=== PATIENT | female | born 1945 | race Caucasian/White ===

== ENCOUNTER 2016-06-03 16:14 | Emergency (ER) | payer OTHER ==
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
[~2016-06-03 16:14] MED LIST: ASPIRIN81 M2 PO; ASPIRINEC PO; CALCIUM 500 + D1 TAB PO; CALCIUM 500 +1 EAC2 PO; HCTZ PO; KEFLEX500 M1 PO; LISINOPRIL; LISINOPRIL PO; MULTI-VITAMIN1 EAC1 PO; OSTEO BI-FLEX1 EACH PO; PEPTO-BISMOL PO; PERCOCET PO; PHENERGAN PO; SYNTHROID PO
== END 2016-06-03 18:07 | disposition home or self-care (01) ==
LOC: SED 16:14
DX: S20.219A Contusion of unspecified front wall of thorax, initial encounter (principal); S30.0XXA Contusion of lower back and pelvis, initial encounter; Z79.899 Other long term (current) drug therapy; Z88.8 Allergy status to other drugs, medicaments and biological substances; V49.50XA Passenger injured in collision with unspecified motor vehicles in traffic accident, initial encounter; Y93.89 Activity, other specified; Y92.410 Unspecified street and highway as the place of occurrence of the external cause
CPT/HCPCS: 71020; 72220; 99284

== ENCOUNTER → 2016-07-19 | Day surgery (SDC) | payer MEDICARE, OTHER ==
--- NOTE | ~2016-07-19 | OR ---
Unit #: [id number] #: [id number] Patient: JUANIS ALARCON [id number] [address] [address] [id number] O MR#: [id number] NAME: JUANIS ALARCON ROOM: Date of Procedure: 07/19/2016 Admission Date: 07/19/2016 Surgeon: Evan Bear M.D. : 1945 Attending Physician: Evan Bear M.D. Referring Physician: Evan Bear M.D. Primary Care Physician: Sandeep Gotti M.D. OPERATIVE REPORT PREOPERATIVE DIAGNOSIS Screening colonoscopy. POSTOPERATIVE DIAGNOSIS Screening colonoscopy. PROCEDURE PERFORMED Colonoscopy to cecum. ANESTHESIA Monitored anesthesia care. FINDINGS The patient was found to have scattered sigmoid diverticula as well as mild internal hemorrhoids. SPECIMENS None. COMPLICATIONS None apparent. CONDITION The patient tolerated the procedure well. INDICATIONS FOR PROCEDURE The patient is a 70-year-old white female, who presents at this time for screening colonoscopy. DESCRIPTION OF PROCEDURE After obtaining informed consent, the patient was brought to the endoscopy suite and after adequate monitored anesthesia care, had the colonoscope placed through the anus, and had the scope slowly advanced with the lumen always in view to the level of the cecum. The cecum was normal as was the ileocecal valve. The ascending colon was normal as was the hepatic flexure, transverse colon, splenic flexure, and descending colon. The sigmoid colon had scattered diverticula present. There were moderate in number. There were no inflammatory changes. The rectosigmoid and rectum were all within normal limits. On retroflexing in the rectum to the anorectal junction, the patient was found to have some mild internal hemorrhoids. The scope was removed without difficulty. The patient tolerated the procedure well and went from the endoscopy suite to recovery Unit #: [id number] #: [id number] Patient: JUANIS ALARCON area in stable condition. RECOMMENDATIONS Diverticular sheet given. High-fiber diet, lots of liquids, tucks or wipes p.r.n. Follow up as needed. Dictated by... Isis Barraza/dillan TD: 07/20/2016 03:56 JOB #: [id number] CC: [facility] OPERATIVE REPORT Page 1 of 1 X Evan Bear MD PROCEDURE OPERATIVE NOTE
== END | disposition home or self-care (01) ==
LOC: COPS 06-09 08:30
DX: Z12.11 Encounter for screening for malignant neoplasm of colon (principal); K57.30 Diverticulosis of large intestine without perforation or abscess without bleeding; K64.8 Other hemorrhoids; I10 Essential (primary) hypertension; E03.9 Hypothyroidism, unspecified; K21.9 Gastro-esophageal reflux disease without esophagitis; Z87.19 Personal history of other diseases of the digestive system; Z80.42 Family history of malignant neoplasm of prostate; Z79.82 Long term (current) use of aspirin; Z79.899 Other long term (current) drug therapy; Z90.49 Acquired absence of other specified parts of digestive tract; Z90.710 Acquired absence of both cervix and uterus; Z98.49 Cataract extraction status, unspecified eye; Z90.721 Acquired absence of ovaries, unilateral; Z98.890 Other specified postprocedural states
CPT/HCPCS: J2250

== ENCOUNTER 2016-07-21 14:59 | Emergency (ER) | payer MEDICARE, OTHER | END 2016-07-21 16:04 | disposition home or self-care (01) | LOC: SED 14:59 | DX: M70.88 Other soft tissue disorders related to use, overuse and pressure other site (principal); I10 Essential (primary) hypertension; Z90.710 Acquired absence of both cervix and uterus; Z90.49 Acquired absence of other specified parts of digestive tract; Z90.89 Acquired absence of other organs; Z79.899 Other long term (current) drug therapy | CPT/HCPCS: 29125; 99283 ==